=== PATIENT | male | born 1990 | race Caucasian/White ===

== ENCOUNTER 2018-12-20 21:41 | Emergency (ER) | payer SELFPAY ==
[2018-12-20 21:52] VITALS: BMI 22.3
[2018-12-20] MEDS ORDERED: KETOROLAC TROMETHAMINE 30 MG/1 ML VIAL IVPUSH ONE (23:08)
[2018-12-20] MEDS ORDERED: DEXAMETHASONE LIQUID 0.5 MG/5 ML 240 ML BULK BOTTLE PO ONE (23:08)
[2018-12-21] MEDS ORDERED: KETOROLAC TROMETHAMINE 30 MG/1 ML VIAL ONE (00:03)
[2018-12-21] MEDS ORDERED: DEXAMETHASONE SOD PHOSPHATE 10 MG/1 ML VIAL ONE (00:04)
[2018-12-21 00:06] LABS: BASO % 1.3 % (0-2.0); EOS % 1.1 % (0-4.5); HEMATOCRIT 43.3 % (35.4-49); HEMOGLOBIN 15.2 GM/dL (11.7-16.9); LYMPH % 6.6 % (8-40); MCH 30.9 pg (25.7-33.7); MCHC 35.1 g/dl (32.0-35.9); MEAN PLT VOLUME 8.8 fl (7.5-11.1); MONO % 6.4 % (3.8-10.2); NEUT % 84.6 % (42.8-82.8); PLATELET COUNT 240 K/MM3 (134-434); RBC 4.93 M/mm3 (4.00-5.60); RDW 12.3 % (11.9-15.9); WHITE BLOOD COUNT 8.9 K/mm3 (4.0-10.0)
[2018-12-21] MEDS ORDERED: DEXAMETHASONE SOD PHOSPHATE 10 MG/1 ML VIAL IVPUSH ONE (00:14)
--- NOTE | 2018-12-21 00:44 | PDOC ---
History of Present Illness - General Chief Complaint: Sore Throat Stated Complaint: THROAT PROBLEM Time Seen by Provider: 12/20/18 22:51 History Source: Patient Exam Limitations: No Limitations Past History - Past Medical History Allergies/Adverse Reactions: Allergies Allergy/AdvReac Type Severity Reaction Status Date / Time No Known Allergies Allergy Verified 12/20/18 21:48 Home Medications: Ambulatory Orders NK [No Known Home Medication] 03/25/15 - Suicide/Smoking/Psychosocial Hx Smoking History: Never smoked Information on smoking cessation initiated: No Hx Alcohol Use: Yes Drug/Substance Use Hx: No *Physical Exam - Vital Signs Last Vital Signs Temp Pulse Resp BP Pulse Ox 98.3 F 102 H 18 105/66 96 12/20/18 21:49 12/20/18 21:49 12/20/18 21:49 12/20/18 21:49 12/20/18 21:49 - Physical Exam General Appearance: No: Apparent Distress HEENT: positive: Muffled/Hoarse voice, Other (no tonsillar swelling noted, no uvula deviation). negative: Pharyngeal Erythema, Tonsillar Exudate, Nasal Congestion, Rhinorrhea Neck: negative: Lymphadenopathy (R), Lymphadenopathy (L) Respiratory/Chest: positive: Lungs Clear, Normal Breath Sounds. negative: Respiratory Distress Cardiovascular: positive: Regular Rhythm, Regular Rate, S1, S2. negative: Murmur Integumentary: positive: Normal Color Neurologic: positive: Alert, Normal Mood/Affect ED Treatment Course - LABORATORY CBC & Chemistry Diagram: 12/20/18 23:51 12/20/18 23:51 - ADDITIONAL ORDERS Additional order review: 12/20/18 23:51 RBC 4.93 MCV 88.0 MCHC 35.1 RDW 12.3 MPV 8.8 Neutrophils % 84.6 H D Lymphocytes % 6.6 L D Monocytes % 6.4 Eosinophils % 1.1 Basophils % 1.3 - Medications Given in the ED: ED Medications Discontinued Medications Generic Name Dose Route Start Last Admin Trade Name Siddharthq PRN Reason Stop Dose Admin Dexamethasone 10 mg 12/20/18 23:08 12/21/18 00:29 Decadron Liquid - PO 12/20/18 23:09 Not Given ONCE ONE Dexamethasone Sodium Phosphate 10 mg 12/21/18 00:14 12/21/18 00:10 Decadron Injection - IVPUSH 12/21/18 00:15 10 mg ONCE ONE Administration Ketorolac Tromethamine 30 mg 12/20/18 23:08 12/21/18 00:10 Toradol Injection - IVPUSH 12/20/18 23:09 30 mg ONCE ONE Administration Medical Decision Making - Medical Decision Making 28 y/o M with hx of asthma presents with sore throat x 3 days along with pain on swallowing and subjective fevers. Patient had 1 episode of emesis today. Denies cough, sob, cp, abd pain, diarrhea. Consider peritonsillar abscess (no obvious seen on visual examination) Rapid strep negative Plan: Labs, toradol, decadron, CT neck 12/21/18 00:43 Lab had stated they lost the initial BMP which was sent Repeat BMP was drawn and sent Pending BMP results Afterward to get soft tissue CT neck w/ contrast to r/o abscess Patient signed out to Dr. Bejarano 12/21/18 01:58 *DC/Admit/Observation/Transfer Diagnosis at time of Disposition: Throat pain - Referrals - Patient Instructions - Post Discharge Activity
--- NOTE | 2018-12-21 02:06 | PDOC ---
*Physical Exam - Vital Signs Last Vital Signs Temp Pulse Resp BP Pulse Ox 98.3 F 102 H 18 105/66 96 12/20/18 21:49 12/20/18 21:49 12/20/18 21:49 12/20/18 21:49 12/20/18 21:49 <Fede Ferguson - Last Filed: 12/21/18 04:59> - Vital Signs Last Vital Signs Temp Pulse Resp BP Pulse Ox 98.6 F 70 16 101/67 97 12/21/18 04:35 12/21/18 04:35 12/21/18 04:35 12/21/18 04:35 12/21/18 04:35 <Tammy Adamson - Last Filed: 12/21/18 05:55> ED Treatment Course - LABORATORY CBC & Chemistry Diagram: 12/20/18 23:51 12/21/18 01:14 - ADDITIONAL ORDERS Additional order review: 12/20/18 23:51 RBC 4.93 MCV 88.0 MCHC 35.1 RDW 12.3 MPV 8.8 Neutrophils % 84.6 H D Lymphocytes % 6.6 L D Monocytes % 6.4 Eosinophils % 1.1 Basophils % 1.3 - Medications Given in the ED: ED Medications Discontinued Medications Generic Name Dose Route Start Last Admin Trade Name Bhavesh PRN Reason Stop Dose Admin Dexamethasone 10 mg 12/20/18 23:08 12/21/18 00:29 Decadron Liquid - PO 12/20/18 23:09 Not Given ONCE ONE Dexamethasone Sodium Phosphate 10 mg 12/21/18 00:14 12/21/18 00:10 Decadron Injection - IVPUSH 12/21/18 00:15 10 mg ONCE ONE Administration Ketorolac Tromethamine 30 mg 12/20/18 23:08 12/21/18 00:10 Toradol Injection - IVPUSH 12/20/18 23:09 30 mg ONCE ONE Administration <Fede Ferguson - Last Filed: 12/21/18 04:59> - LABORATORY CBC & Chemistry Diagram: 12/20/18 23:51 12/21/18 01:14 - ADDITIONAL ORDERS Additional order review: Laboratory Results 12/21/18 12/20/18 01:14 23:51 Sodium 138 Cancelled Potassium 3.8 Cancelled Chloride 104 Cancelled Carbon Dioxide 25 Cancelled Anion Gap 9 Cancelled BUN 10.1 Cancelled Creatinine 0.9 Cancelled Est GFR (CKD-EPI)AfAm 135.19 Cancelled Est GFR (CKD-EPI)NonAf 116.64 Cancelled Random Glucose 92 Cancelled Calcium 8.9 Cancelled 12/20/18 23:51 RBC 4.93 MCV 88.0 MCHC 35.1 RDW 12.3 MPV 8.8 Neutrophils % 84.6 H D Lymphocytes % 6.6 L D Monocytes % 6.4 Eosinophils % 1.1 Basophils % 1.3 - Medications Given in the ED: ED Medications Discontinued Medications Generic Name Dose Route Start Last Admin Trade Name Freq PRN Reason Stop Dose Admin Dexamethasone 10 mg 12/20/18 23:08 12/21/18 00:29 Decadron Liquid - PO 12/20/18 23:09 Not Given ONCE ONE Dexamethasone Sodium Phosphate 10 mg 12/21/18 00:14 12/21/18 00:10 Decadron Injection - IVPUSH 12/21/18 00:15 10 mg ONCE ONE Administration Ketorolac Tromethamine 30 mg 12/20/18 23:08 12/21/18 00:10 Toradol Injection - IVPUSH 12/20/18 23:09 30 mg ONCE ONE Administration <Tammy Adamson - Last Filed: 12/21/18 05:55> Medical Decision Making - Medical Decision Making Received signout. Plan for CT neck with contrast after Cr is determined. 12/21/18 02:05 <Fede Ferguson - Last Filed: 12/21/18 04:59> - Medical Decision Making 12/21/18 05:52 Patient Name: BONNIE HOSKINS THIS IS A PRELIMINARY REPORT FROM [facility] DATE OF SERVICE: 2018-12-21 03:06:14 IMAGES: [id number] EXAM: CTA NECK No abscess or focal fluid collection. Unremarkable tonsillar fossa, epiglottis, thyroid gland, and parotid and submandibular glands. No lymph node enlargement. Mucus retention cyst left maxillary sinus. Asymmetrically prominent right cavernous sinus enhancement incidentally noted, uncertain significance. Patent bilateral carotid and vertebral arteries with no evidence of dissection, extravasation, aneurysm, or substantial stenosis. <Tammy Adamson - Last Filed: 12/21/18 05:55> *DC/Admit/Observation/Transfer - Discharge Dispostion Decision to Admit order: No <Fede Ferguson - Last Filed: 12/21/18 04:59> - Discharge Dispostion Decision to Admit order: No <Tammy Adamson - Last Filed: 12/21/18 05:55> Diagnosis at time of Disposition: Throat pain - Discharge Dispostion Disposition: HOME Condition at time of disposition: Improved - Patient Instructions Printed Discharge Instructions: Viral Pharyngitis Additional Instructions: You were seen for throat swelling and muffled voice. This has gotten better with steroid treatment. Please follow up with your primary doctor. Return to the ED if you have issues with your throat closing up, difficulty breathing, or changes in your voice. - Post Discharge Activity Forms/Work/School Notes: Back to Work, Parent(s) Back to Work Note
[2018-12-21 02:08] LABS: BLOOD UREA NITROGEN 10.1 mg/dL (7-18); CALCIUM 8.9 mg/dL (8.5-10.1); CREATININE 0.9 mg/dL (0.55-1.3); POTASSIUM 3.8 mmol/L (3.5-5.1)
[2018-12-21 04:50] VITALS: BP 101/67; PULSE 70; TEMP 98.6
== END 2018-12-21 06:05 | disposition home or self-care (01) ==
LOC: JER 21:41 → JERFT 21:41 → JER 12-21 06:05
PROC: 3E0333Z Introduction of Anti-inflammatory into Peripheral Vein, Percutaneous Approach (ICD-10-PCS; principal; 2018-12-20)
PROC: 3E0333Z Introduction of Anti-inflammatory into Peripheral Vein, Percutaneous Approach (ICD-10-PCS; 2018-12-20)
DX: J02.9 Acute pharyngitis, unspecified (principal); B97.89 Other viral agents as the cause of diseases classified elsewhere
CPT/HCPCS: 36415; 70498-TC; 80048; 85025; 87070; 87880; 99282-25; J1100